=== PATIENT | female | born 2000 | race Asian ===

== ENCOUNTER 2022-07-18 22:18 | Emergency (ER) | payer SELFPAY ==
[2022-07-18 23:56] LABS: BHCG - Serum Negative (NEGATIVE); Pregs Control Background? CLEAR/WHITE (CLR/WHITE); Pregs Control Bar Appear? YES (CONTROL BAR)
== END 2022-07-19 00:28 | disposition home or self-care (01) ==
LOC: ERS 22:18
DX: R55 Syncope and collapse (principal)
CPT/HCPCS: 36415; 84703; 93005; 96360